=== PATIENT | male | born 1995 | race Two or more races ===

== ENCOUNTER 2018-08-29 16:31 | Emergency (ER) | payer SELFPAY ==
[~2018-08-29] VITALS: Ht 172.7 cm; Wt 66.7 kg
[2018-08-29] MEDS ORDERED: NEOMY/BACITRA/POLYMYXIN B OINT UD PACKET TP ONE ×2 (17:15→17:18)
--- NOTE | 2018-08-29 17:18 | NUR ---
PT WAS EVALUATED BY DR COLLADO. PT WAS D/C TO HOME. D/C INSTRUCTIONS GIVEN TO THE PT. NO BLEEDING . DRESSING IS INTACT.
[2018-08-29 17:25] VITALS: BP 131/73
== END 2018-08-29 17:26 | disposition home or self-care (01) ==
LOC: ER 16:33
DX: S61.011A Laceration without foreign body of right thumb without damage to nail, initial encounter (principal); X58.XXXA Exposure to other specified factors, initial encounter; Y93.89 Activity, other specified; Y92.89 Other specified places as the place of occurrence of the external cause; Y99.8 Other external cause status
CPT/HCPCS: A4663